=== PATIENT | female | born 1995 | race African-American/Black ===

== ENCOUNTER 2017-10-03 14:28 | Emergency (ER) | payer BC ==
[~2017-10-03] VITALS: Ht 152.4 cm; Wt 77.0 kg
[2017-10-03 15:04] VITALS: BP 121/83
== END 2017-10-03 17:40 | disposition left against medical advice (07) ==
LOC: ER 15:16
DX: J11.1 Influenza due to unidentified influenza virus with other respiratory manifestations (principal); Z53.21 Procedure and treatment not carried out due to patient leaving prior to being seen by health care provider